=== PATIENT | male | born 1975 | race Asian ===

== ENCOUNTER 2016-12-01 21:06 | Emergency (ER) | payer OTHER ==
[~2016-12-01] VITALS: Ht 170.2 cm; Wt 70.4 kg
[2016-12-01 21:18] VITALS: Ht 170.2 cm; Wt 70.4 kg
[2016-12-01] MEDS ORDERED: ACETAMINOPHEN 500 MG TAB PO STA (21:37)
[2016-12-01] MEDS ORDERED: SODIUM CHLORIDE 0.9% 1000ML 2,000 ML IV STA (21:37)
[2016-12-01] MEDS ORDERED: SODIUM CHLORIDE 0.9% 1000ML 1,000 ML IV STA (21:37)
[2016-12-01] MEDS ORDERED: CEFTRIAXONE SOD INJ 2,000 MG in DEXTROSE 5% 50ML 50 ML IV STA (21:47)
[2016-12-01 21:51] VITALS: O2SAT 93
[2016-12-01] MEDS ORDERED: DEXAMETHASONE SOD INJ 10 MG/ML VIAL IV ONE (22:00)
[2016-12-01 22:05] LABS: MANUAL MICROSCOPIC REQUIRED? NO; REVIEW REQ? NO; URINE APPEARANCE CLEAR (CLEAR); URINE BILIRUBIN NEG (NEG); URINE COLOR YELLOW; URINE EPITHELIAL CELL AUTO 0-5 /lpf (0-5); URINE NITRITE NEG (NEG); URINE SPECIFIC GRAVITY 1.012 (1.000-1.030); UROBILINOGEN NEG (NEG); ZZUR CULT IF INDIC CLEAN CATCH NO
[2016-12-01 22:19] LABS: BASO % 0.2 %; BASO ABS # 0.02 K/uL (0-0.2); COMPLETE YES; EOS % 3.9 %; HEMATOCRIT 39.9 % (42-52); IG% 0.3 %; LYMPH % 13.2 %; LYMPH ABS # 1.53 K/uL (1.2-3.4); MEAN CELL VOLUME 85.4 fL (80-100); MEAN CORPUSCULAR HEMOGLOBIN 29.8 pg (25-34); MEAN CORPUSCULAR HGB CONC 34.8 g/dl (32-36); NEUT % 74.4 %; PLATELET COUNT 262 K/uL (130-400); RED BLOOD COUNT 4.67 M/uL (4.7-6.1)
[2016-12-01 22:29] LABS: INR 0.9 (0.9-1.1); PARTIAL THROMBOPLASTIN RATIO 1.1; PROTHROMBIN TIME (PATIENT) 10.1 SECONDS (9.0-12.0)
[2016-12-01 22:37] LABS: BUN/CREATININE RATIO 7.7 (10-20); CALCIUM 8.7 mg/dl (8.5-10.1); CREATININE 1.1 mg/dl (0.60-1.40); POTASSIUM 3.9 mmol/L (3.5-5.1)
[2016-12-01 22:40] LABS: ALB/GLOB RATIO 0.9 (0.9-2)
--- NOTE | 2016-12-01 22:42 | DIAGNOSTIC IMAGING REPORT ---
HEAD CT NONCONTRAST CT DOSE: 537.48 mGy.cm HISTORY: Fever. Mental status change. GALLEGOS/fever, return form africae TECHNIQUE: Multiaxial CT images of the head were performed without the use of intravenous contrast. Comparison: None. Findings: Moderate mucosal thickening of the ethmoid sinuses. Air-fluid level within the left maxillary sinus. Hypertrophic change of the nasal turbinates. Frontal sinuses are clear. The calvarium and skull base are intact. The ventricles and sulci are within normal limits. There is no mass, hematoma, midline shift, or acute infarct. Impression: 1. Negative unenhanced CT scan of the brain. 2. Sinusitis. Electronically signed by: Joey Salas M.D. 12/01/2016 10:41 PM Dictated Date/Time: 12/01/2016 10:40 PM
--- NOTE | 2016-12-01 23:01 | DIAGNOSTIC IMAGING REPORT ---
CHEST ONE VIEW PORTABLE CLINICAL HISTORY: Sepsis dyspnea COMPARISON STUDY: No previous studies for comparison. FINDINGS: Minimal left infrahilar infiltrate. Lungs otherwise are clear. Diaphragms smooth. IMPRESSION: Minimal left infrahilar infiltrate. Electronically signed by: Joey Salas M.D. 12/01/2016 11:00 PM Dictated Date/Time: 12/01/2016 11:00 PM
[2016-12-01 23:13] LABS: LYME DISEASE AB IGG NEG (NEG); LYME DISEASE AB IGM NEG (NEG)
[2016-12-01 23:20] VITALS: TEMP 37.7
[2016-12-01 23:39] LABS: CSF TOTAL PROTEIN 34.9 mg/dl (15.0-45.0)
[2016-12-01 23:41] LABS: CSF CHEMISTRY TUBE # 2
[2016-12-01 23:42] LABS: CSF APPEARANCE CLEAR; CSF COLOR COLORLESS; CSF XANTHOCHROMIC XANTHOCHROMIC
[2016-12-02 00:29] LABS: CSF APPEARANCE CLEAR; CSF COLOR COLORLESS; CSF XANTHOCHROMIC NO XANTHOCHROMIA
[2016-12-02] MEDS ORDERED: DOXY100C2 PO (00:42)
[2016-12-02] MEDS ORDERED: DOXYCYCLINE HYCLATE 100 MG CAP PO ONE (00:45)
[2016-12-02] MEDS ORDERED: IBUPROFEN 600 MG TAB PO STA (00:48)
--- NOTE | 2016-12-02 00:51 | EMERGENCY ROOM VISIT NOTE ---
History First contact with patient: 21:25 Chief Complaint: FEVER Stated Complaint: FEVER 103., ELEVATED RESTING HEART RATE 130 History of Present Illness The patient is a 41 year old male who presents to the Emergency Room with complaints of high fever, headache, neck discomfort and heart racing for the past day who just returned from [facility] 3 days ago. Patient did take his antimalarial medication. He is on mefloquine. She has taking it as prescribed. He states he has not missed a dose. Patient states he was there for 16 days. He did take a typhoid vaccine prior. No yellow fever vaccine. This was not recommended. Patient states the person next to him on the flight home was sick with fever and cough. She was in [place]. Patient denies chest pain, dyspnea, rashes, bleeding gums, abdominal pain, vomiting, diarrhea, sore throat, cough, vision problems, earache. He is tolerating by mouth fluids and food. He took Advil this morning but nothing since. He is unsure if any mosquitoes bit him. He's had tick bites in the past. He was there on holiday visiting family. No one else in the family is sick currently. Review of Systems See HPI for pertinent positives & negatives. A total of 10 systems reviewed and were otherwise negative. Past Medical/Surgical History None Social History Smoking Status: Never Smoker Smokeless Tobacco Use: No Drug Use: none Housing Status: lives with family Occupation Status: employed Current/Historical Medications Scheduled Doxycycline Hyclate (Vibramycin), 100 MG PO BID Mefloquine HCl (Mefloquine HCl), 250 MG PO TUESDAYS Allergies Coded Allergies: No Known Allergies (Unverified , 12/01/16) Physical Exam Vital Signs Date Time Temp Pulse Resp B/P (MAP) Pulse Ox O2 Delivery O2 Flow Rate FiO2 12/01/16 23:20 37.7 12/01/16 23:05 113 28 115/76 95 Room Air 12/01/16 21:59 108 12/01/16 21:51 93 Room Air 12/01/16 21:18 39.1 132 18 138/81 96 Room Air Physical Exam VITALS: Vitals are noted on the nurse's note and reviewed by myself. Vital signs febrile and tachycardic. GENERAL: Pleasant male mildly ill-appearing, well-developed well-nourished. SKIN: The skin was without rashes, erythema, edema, or bruising. There is no tenting of the skin. Capillary reflex less than 2 seconds. HEAD: Normocephalic atraumatic. EARS: External auditory canals clear, tympanic membranes pearly bragg without erythema or effusion bilaterally. EYES: Pupils equal round and reactive to light and accommodation. Conjunctivae without injection, sclerae without icterus. Extraocular movements intact. NOSE: Patent, turbinates without inflammation or discharge. No sinus tenderness. MOUTH: Mucous membranes mildly dry. Pharynx without erythema or exudate. Uvula midline. Airway patent. Tongue does not deviate. NECK: Supple with neck pain with chin to chest. No lymphadenopathy. No thyromegaly. Cervical spine is nontender. No JVD. HEART: Tachycardic Regular rate and rhythm without murmurs gallops or rubs. LUNGS: Clear to auscultation bilaterally without wheezes, rales or rhonchi. No dullness to percussion. No retractions or accessory muscle use. ABDOMEN: Positive bowel sounds x 4. Normal tympanic percussion. Soft, nontender, without masses or organomegaly. Saleem sign negative. No guarding or rebound tenderness. No CVA tenderness MUSCULOSKELETAL: No muscle atrophy, erythema, or edema noted. NEURO: Patient was alert and oriented to person place and time. Normal sensation to light and sharp touch. No focal neurological deficits. Medical Decision & Procedures Laboratory Results 12/01/16 21:56 Red Blood Count 4.67, Mean Corpuscular Volume 85.4, Mean Corpuscular Hemoglobin 29.8, Mean Corpuscular Hemoglobin Concent 34.8, Mean Platelet Volume 9.0, Neutrophils (%) (Auto) 74.4, Lymphocytes (%) (Auto) 13.2, Monocytes (%) (Auto) 8.0, Eosinophils (%) (Auto) 3.9, Basophils (%) (Auto) 0.2, Neutrophils # (Auto) 8.64, Lymphocytes # (Auto) 1.53, Monocytes # (Auto) 0.93, Eosinophils # (Auto) 0.45, Basophils # (Auto) 0.02 12/01/16 21:56 Test 12/01/16 21:50 12/01/16 21:56 12/01/16 22:11 12/01/16 23:05 Urine Color YELLOW Urine Appearance CLEAR (CLEAR) Urine pH 7.0 (4.5-7.5) Urine Specific [place] 1.012 (1.000-1.030) Urine Protein NEG (NEG) Urine Glucose (UA) NEG (NEG) Urine Ketones NEG (NEG) Urine Occult Blood NEG (NEG) Urine Nitrite NEG (NEG) Urine Bilirubin NEG (NEG) Urine Urobilinogen NEG (NEG) Urine Leukocyte Esterase NEG (NEG) Urine WBC (Auto) 1-5 /hpf (0-5) Urine RBC (Auto) 0-4 /hpf (0-4) Urine Hyaline Casts (Auto) 0 /lpf (0-5) Urine Epithelial Cells (Auto) 0-5 /lpf (0-5) Urine Bacteria (Auto) NEG (NEG) White Blood Count 11.60 K/uL (4.8-10.8) Red Blood Count 4.67 M/uL (4.7-6.1) Hemoglobin 13.9 g/dL (14.0-18.0) Hematocrit 39.9 % (42-52) Mean Corpuscular Volume 85.4 fL (80-100) Mean Corpuscular Hemoglobin 29.8 pg (25-34) Mean Corpuscular Hemoglobin Concent 34.8 g/dl (32-36) Platelet Count 262 K/uL (130-400) Mean Platelet Volume 9.0 fL (7.4-10.4) Neutrophils (%) (Auto) 74.4 % Lymphocytes (%) (Auto) 13.2 % Monocytes (%) (Auto) 8.0 % Eosinophils (%) (Auto) 3.9 % Basophils (%) (Auto) 0.2 % Neutrophils # (Auto) 8.64 K/uL (1.4-6.5) Lymphocytes # (Auto) 1.53 K/uL (1.2-3.4) Monocytes # (Auto) 0.93 K/uL (0.11-0.59) Eosinophils # (Auto) 0.45 K/uL (0-0.5) Basophils # (Auto) 0.02 K/uL (0-0.2) RDW Standard Deviation 38.8 fL (36.4-46.3) RDW Coefficient of Variation 12.5 % (11.5-14.5) Immature Granulocyte % (Auto) 0.3 % Immature Granulocyte # (Auto) 0.03 K/uL (0.00-0.02) Prothrombin Time 10.1 SECONDS (9.0-12.0) Prothromb Time International Ratio 0.9 (0.9-1.1) Activated Partial Thromboplast Time 27.7 SECONDS (21.0-31.0) Partial Thromboplastin Ratio 1.1 Anion Gap 7.0 mmol/L (3-11) Est Creatinine Clear Calc Drug Dose 84.3 ml/min Estimated GFR () 97.5 Estimated GFR (Non- 84.1 BUN/Creatinine Ratio 7.7 (10-20) Calcium Level 8.7 mg/dl (8.5-10.1) Total Bilirubin 0.9 mg/dl (0.2-1) Aspartate Amino Transf (AST/SGOT) 16 U/L (15-37) Alanine Aminotransferase (ALT/SGPT) 26 U/L (12-78) Alkaline Phosphatase 70 U/L (45-117) Total Protein 7.6 gm/dl (6.4-8.2) Albumin 3.7 gm/dl (3.4-5.0) Globulin 3.9 gm/dl (2.5-4.0) Albumin/Globulin Ratio 0.9 (0.9-2) Lyme Disease IgG Antibody NEG (NEG) Lyme Disease IgM Antibody NEG (NEG) Bedside Lactic Acid Venous 0.99 mmol/L (0.90-1.70) CSF Color COLORLESS CSF Appearance CLEAR CSF WBC 1 /uL (0-5) CSF RBC 58 /uL (0) CSF Xanthrochromic NO XANTHOCHROMIA CSF Cell Count Tube # 1 CSF Chemistry Tube # 2 CSF Glucose 70 mg/dl (40-70) CSF Total Protein 34.9 mg/dl (15.0-45.0) Medications Administered Medications (Trade) Dose Ordered Sig/Devon Route Start Time Stop Time Status Last Admin Dose Admin Sodium Chloride 2,000 ml @ 999 mls/hr Q2H1M STAT IV 12/01/16 21:37 12/01/16 23:37 DC 12/01/16 21:37 999 MLS/HR Sodium Chloride 1,000 ml @ 125 mls/hr Q8H STAT IV 12/01/16 21:37 12/02/16 05:36 12/01/16 22:20 125 MLS/HR Acetaminophen (Tylenol Tab) 1,000 mg NOW STAT PO 12/01/16 21:37 12/01/16 21:39 DC 12/01/16 22:20 1,000 MG Ceftriaxone Sodium 2000 mg/ Dextrose 70 ml @ 100 mls/hr ONE STAT IV 12/01/16 21:47 12/01/16 22:28 DC 12/01/16 22:32 100 MLS/HR Dexamethasone Sodium Phosphate (Decadron Inj) 10 mg NOW ONCE IV 12/01/16 22:00 12/01/16 22:02 DC 12/01/16 22:20 10 MG Procedure Lumbar Puncture Indication: Rule out meningitis. Verbal consent was obtained after the risks and benefits were explained, including but not limited to headache, bleeding/clotting, scarring, infection, pain, and bone/joint/nerve damage. At this time, the risks of the procedure are less than the risks of NOT performing the procedure. A time out was taken and the correct patient and site identified. The patient was placed in the sitting position and the back was prepped with betadine and draped in the standard fashion. The L3 intervertebral space was identified, anesthetized locally with 1 % lidocaine without epinephrine, and the spinal needle was inserted through the skin with the bevel parallel to the dural fibers. The needle was carefully advanced into the lumbar cistern and 4 tubes of clear CSF was obtained. The stylet was replaced and the needle was removed. A bandaid was placed and the patient was placed in the supine position. The patient tolerated the procedure well and there were no complications. ED Course Prior records/ancillary studies reviewed. Triage Nursing notes reviewed. The patient's history was concerning for fever. Differential diagnosis: Etiologies such as malaria, yellow fever, typhoid, hepatitis, viral syndrome, otitis, pharyngitis, pneumonia, influenza, meningitis, urinary tract infection, sepsis, bacteremia, as well as others were entertained. Physical examination: Patient is alert and mildly ill-appearing ER treatment provided: IV fluids, Tylenol, Decadron, Rocephin On reassessment the patient felt better. Diagnostics interpreted by me: ECG: Normal sinus, normal intervals, normal axis, no acute ST-T wave changes, with a rate of 113. Impression sinus tachycardia interpreted by myself The labs revealed leukocytosis, mild anemia, negative CSF Imaging studies: CT DOSE: 537.48 mGy.cm HISTORY: Fever. Mental status change. GALLEGOS/fever, return form africae TECHNIQUE: Multiaxial CT images of the head were performed without the use of intravenous contrast. Comparison: None. Findings: Moderate mucosal thickening of the ethmoid sinuses. Air-fluid level within the left maxillary sinus. Hypertrophic change of the nasal turbinates. Frontal sinuses are clear. The calvarium and skull base are intact. The ventricles and sulci are within normal limits. There is no mass, hematoma, midline shift, or acute infarct. Impression: 1. Negative unenhanced CT scan of the brain. 2. Sinusitis. Electronically signed by: Joey Salas M.D. CHEST ONE VIEW PORTABLE CLINICAL HISTORY: Sepsis dyspnea COMPARISON STUDY: No previous studies for comparison. FINDINGS: Minimal left infrahilar infiltrate. Lungs otherwise are clear. Diaphragms smooth. IMPRESSION: Minimal left infrahilar infiltrate. Electronically signed by: Joey Salas M.D. 12/01/2016 11:00 PM I did review the CDC website and patient is at risk for malaria, yellow fever, meningitis and typhoid. The lady that he was sitting next to him on the Pl[place] from [facility] is also a risk for the same things but also hepatitis. Blood cultures were drawn and septic workup was initiated. Isolation precautions were placed. This appears to be consistent with pneumonia. Patient had no sinus tenderness on exam. He is well-appearing. CSF was negative for bacterial meningitis. Negative malaria screen. Negative lactic acid. Blood cultures are pending. He was counseled on diagnosis and all questions are answered. He was advised to repeat malaria testing if he still symptomatic with his family care doctor. He was advised take medications as directed, rest, stay well-hydrated and follow -up family care in a few days or here in the ER sooner for high fevers, lethargy , neck stiffness, spinal headache, worsening signs or symptoms or as needed. By the evaluation outlined above emergent etiologies such as otitis, pharyngitis, meningitis, urinary tract infection, sepsis, bacteremia, as well as others were deemed relatively unlikely. The pt informed about the findings as listed above. All questions were answered and pleased with the treatment. Return instructions were outlined and the patient was discharged in stable condition. Outpatient prescription management: Doxycycline Referral: The patient was referred back to their primary care physician for follow-up in 2 to 3 days for a recheck of the current condition. Case reviewed with my attending Medical Decision As above Impression Primary Impression: Pneumonia Additional Impression: Fever Departure Information Prescriptions Doxycycline Hyclate (VIBRAMYCIN) 100 Mg Cap 100 MG PO BID for 7 Days, #14 CAP Prov: Mansi Madrid PA-C 12/02/16 Referrals Brionna Baez M.D. (PCP) Patient Instructions [facility] Problem Qualifiers Primary Impression: Pneumonia Pneumonia type: due to unspecified organism Laterality: left Lung location : unspecified part of lung Qualified Codes: J18.9 - Pneumonia, unspecified organism Additional Impression: Fever Fever type: unspecified Qualified Codes: R50.9 - Fever, unspecified
[2016-12-02 01:02] VITALS: BP 132/77; PULSE 81; O2SAT 97
[2016-12-05] MEDS ORDERED: [UNRECOGNIZED DRUG - CODE] PO (22:11)
== END 2016-12-02 01:05 | disposition home or self-care (01) ==
LOC: C.EDB 21:07 → C.EDC 12-02 01:05
DX: J18.9 Pneumonia, unspecified organism (principal); R50.9 Fever, unspecified

== ENCOUNTER 2016-12-05 15:58 | Emergency (ER) | payer OTHER ==
[~2016-12-05] VITALS: Ht 170.2 cm; Wt 69.5 kg
[~2016-12-05 15:58] MED LIST: DOXY100C2 PO
[2016-12-05 16:00] VITALS: TEMP 36.7; Ht 170.2 cm; Wt 69.5 kg
[2016-12-05 16:35] LABS: BASO % 0.4 %; BASO ABS # 0.04 K/uL (0-0.2); COMPLETE YES; HEMATOCRIT 45.6 % (42-52); IG% 0.2 %; LYMPH % 41.2 %; LYMPH ABS # 3.76 K/uL (1.2-3.4); MEAN CELL VOLUME 84.4 fL (80-100); MEAN CORPUSCULAR HEMOGLOBIN 28.9 pg (25-34); MEAN CORPUSCULAR HGB CONC 34.2 g/dl (32-36); MEAN PLATELET VOLUME 8.7 fL (7.4-10.4); MONO % 11.1 %; NEUT % 36.1 %; PLATELET COUNT 345 K/uL (130-400); WHITE BLOOD COUNT 9.12 K/uL (4.8-10.8)
[2016-12-05 16:44] LABS: PROTHROMBIN TIME (PATIENT) 10.2 SECONDS (9.0-12.0)
[2016-12-05 16:52] LABS: BUN/CREATININE RATIO 8.7 (10-20); CALCIUM 9.8 mg/dl (8.5-10.1); POTASSIUM 3.9 mmol/L (3.5-5.1)
--- NOTE | 2016-12-05 19:32 | Progress Note ---
Progress Note Date of Service Dec 05, 2016. Progress Note The patient is a 41 year old who had an LP in the ED four days ago. The next day he developed a severe headache from the back of the neck radiating upward across the top of the head. It resolves when he lies flat and is worse when he stands. He was given informed consent and placed in the sitting position. The L3 -4 interspace was infiltrated subcu with 1% lidocaine and a 17 gauge tuohy was used to access the epidural space. Under sterile conditions Dr Cortés juan 20 cc of autologous blood and it was injected into the epidural space. The patient was laid supine for 30 minutes and discharged with instructions to follow up with his private MD if he has any more problems.
--- NOTE | 2016-12-05 20:01 | Anesthesiology Progress Note ---
Anesthesia Progress Note Date of Service Dec 05, 2016. Progress Notes Pt has been supine x > 30 mins. post epidural blood patch.Pt was place in the upright position x 1o minutes. Pt states the PDPH has abated. Pt to be discharged by ER attending physician.
[2016-12-05 20:19] VITALS: BP 98/70; PULSE 62; O2SAT 98
--- NOTE | 2016-12-05 20:46 | EMERGENCY ROOM VISIT NOTE ---
History Report prepared by Juan Cibluis: Rico Javier Under the Supervision of: Dr. Brent Baird D.O. First contact with patient: 16:05 Chief Complaint: HEADACHE Stated Complaint: HEADACHE AFTER LUMBAR PUNCTURE History of Present Illness The patient is a 41 year old male who presents to the Emergency Room with complaints of a persistent posterior headache beginning four days ago. He was seen in the ED four days ago for a headache and had a lumbar puncture to rule out meningitis. His meningitis testing was negative, but he was found to have pneumonia. The patient states "my head just feels stiff" and describes his pain as a "throbbing". His pain is worse while standing. He states that his pain is nearly gone while he is laying down. The patient states that he has had no fevers since his previous visit to the ED. He states that his current headache feels completely different than it did prior to the lumbar puncture. The headache that he had when he came in several days ago and is completely resolved. He is not on any blood thinners. Pt denies change in vision, cough, sore throat, chest pain, shortness of breath, nausea, vomiting, diarrhea, pain with urination, rash, and melena. He notes that he often gets a rash on his lip when he gets sick which became present a few days ago. Source of History: patient Onset: Four days ago Position: head (posterior) Quality: other ("throbbing") Timing: other (persistent) Modifying Factors (Worsening): other (standing) Modifying Factors (Relieving): other (laying down) Associated Symptoms: No fevers, No sorethroat, No cough, No chest pain, No SOB, No nausea, No vomiting, No melena, No diarrhea, No urinary symptoms Review of Systems See HPI for pertinent positives & negatives. A total of 10 systems reviewed and were otherwise negative. Past Medical & Surgical Medical Problems: (1) No Known Active Medical Problems Family History No pertinent family history stated. Social History Smoking Status: Never Smoker Drug Use: none Housing Status: lives with family Occupation Status: employed Current/Historical Medications Scheduled Doxycycline Hyclate (Vibramycin), 100 MG PO BID Mefloquine HCl (Mefloquine HCl), 250 MG PO WK Allergies Coded Allergies: No Known Allergies (Unverified , 12/01/16) Physical Exam Vital Signs Date Time Temp Pulse Resp B/P (MAP) Pulse Ox O2 Delivery O2 Flow Rate FiO2 12/05/16 20:19 62 16 98/70 98 12/05/16 19:46 62 20 118/76 97 Room Air 12/05/16 19:34 65 18 99/61 95 Room Air 12/05/16 19:25 59 12/05/16 17:29 78 16 112/71 97 Room Air 12/05/16 16:00 36.7 89 17 129/88 97 Room Air Physical Exam GENERAL: sitting up in bed, disheveled, no acute distress EYE EXAM: normal conjunctiva OROPHARYNX: no exudate, no erythema, lips, buccal mucosa, and tongue normal and mucous membranes are moist NECK: supple, no nuchal rigidity, no adenopathy, non-tender. Negative Brudzinski. LUNGS: Clear to auscultation. Normal chest wall mechanics HEART: no murmurs, S1 normal and S2 normal ABDOMEN: abdomen soft, non-tender, normo-active bowel sounds, no masses, no rebound or guarding. BACK: no CVA tenderness. SKIN: no rashes and no bruising UPPER EXTREMITIES: upper extremities are grossly normal. LOWER EXTREMITIES: No pitting edema. NEURO EXAM: Normal sensorium, cranial nerves II-XII intact, normal speech, no weakness of arms, no weakness of legs. No drift. Finger to nose intact. Gross sensation intact. Medical Decision & Procedures Laboratory Results 12/05/16 16:26 Red Blood Count 5.40, Mean Corpuscular Volume 84.4, Mean Corpuscular Hemoglobin 28.9, Mean Corpuscular Hemoglobin Concent 34.2, Mean Platelet Volume 8.7, Neutrophils (%) (Auto) 36.1, Lymphocytes (%) (Auto) 41.2, Monocytes (%) (Auto) 11.1, Eosinophils (%) (Auto) 11.0, Basophils (%) (Auto) 0.4, Neutrophils # (Auto ) 3.29, Lymphocytes # (Auto) 3.76, Monocytes # (Auto) 1.01, Eosinophils # (Auto ) 1.00, Basophils # (Auto) 0.04 12/05/16 16:26 Test 12/05/16 16:26 White Blood Count 9.12 K/uL (4.8-10.8) Red Blood Count 5.40 M/uL (4.7-6.1) Hemoglobin 15.6 g/dL (14.0-18.0) Hematocrit 45.6 % (42-52) Mean Corpuscular Volume 84.4 fL (80-100) Mean Corpuscular Hemoglobin 28.9 pg (25-34) Mean Corpuscular Hemoglobin Concent 34.2 g/dl (32-36) Platelet Count 345 K/uL (130-400) Mean Platelet Volume 8.7 fL (7.4-10.4) Neutrophils (%) (Auto) 36.1 % Lymphocytes (%) (Auto) 41.2 % Monocytes (%) (Auto) 11.1 % Eosinophils (%) (Auto) 11.0 % Basophils (%) (Auto) 0.4 % Neutrophils # (Auto) 3.29 K/uL (1.4-6.5) Lymphocytes # (Auto) 3.76 K/uL (1.2-3.4) Monocytes # (Auto) 1.01 K/uL (0.11-0.59) Eosinophils # (Auto) 1.00 K/uL (0-0.5) Basophils # (Auto) 0.04 K/uL (0-0.2) RDW Standard Deviation 37.7 fL (36.4-46.3) RDW Coefficient of Variation 12.3 % (11.5-14.5) Immature Granulocyte % (Auto) 0.2 % Immature Granulocyte # (Auto) 0.02 K/uL (0.00-0.02) Prothrombin Time 10.2 SECONDS (9.0-12.0) Prothromb Time International Ratio 1.0 (0.9-1.1) Anion Gap 8.0 mmol/L (3-11) Est Creatinine Clear Calc Drug Dose 92.7 ml/min Estimated GFR () 109.4 Estimated GFR (Non- 94.4 BUN/Creatinine Ratio 8.7 (10-20) Calcium Level 9.8 mg/dl (8.5-10.1) Total Bilirubin 0.6 mg/dl (0.2-1) Direct Bilirubin 0.1 mg/dl (0-0.2) Aspartate Amino Transf (AST/SGOT) 11 U/L (15-37) Alanine Aminotransferase (ALT/SGPT) 28 U/L (12-78) Alkaline Phosphatase 69 U/L (45-117) Total Protein 7.6 gm/dl (6.4-8.2) Albumin 3.5 gm/dl (3.4-5.0) Laboratory results per my review. ED Course ED COURSE: Vital signs were reviewed and showed hypertension The patients medical record was reviewed The above diagnostic studies were performed and reviewed. ED treatments and interventions as stated above. 1607: The patient was evaluated in room C4. A complete history and physical examination was performed. 1728: I reassessed the patient. He feels completely normal with laying flat. 2010: Upon reevaluation, the patient is resting comfortably. I discussed my findings with the patient and he understands and agrees with the treatment plan. Based on the patients age, coexisting illnesses, exam and lab findings the decision to treat as an outpatient was made. The patient remained stable while under my care. The patient appeared well at the time of discharge. Medical Decision Differential Diagnosis includes but is not limited to headache, tension headache , cluster headache, migraine, subarachnoid hemorrhage, meningitis, mass, central venous thrombus, concussion, trauma and epidural/subdural hemorrhage. Patient is a 41-year-old male who was seen here several days ago for fever and headache. He was diagnosed with pneumonia. LP was performed at that time and was negative. His headache from that visit has completely resolved. He now only has a headache when he is sitting up and it almost completely resolves when he lies flat. Patient is completely neurologically intact. Examination and HPI is consistent with a post-LP headache. Patient was given fluids and evaluated by anesthesia. Blood patch was performed. Patient following this was able to sit up and stand without pain. He was discharged to follow-up with his PCP. Discussed with Pt concerning signs and symptoms to watch out for. Pt was instructed to follow up with their PCP and discussed with the patient their option to return to the ED at anytime for persistent or worsening symptoms. The appropriate anticipatory guidance and out-patient management, including indications for return to the emergency department, were explained at length to the patient and understood. Consults Time Called: [id number] Consulting Physician: Dr. Josue -Anesthesiology Returned Call: 1915 Discussed the patient's case with Dr. Josue. The patient will be evaluated for possible blood patch. Impression Primary Impression: Post lumbar puncture headache Scribe Attestation The scribe's documentation has been prepared under my direction and personally reviewed by me in its entirety. I confirm that the note above accurately reflects all work, treatment, procedures, and medical decision making performed by me. Departure Information Dispostion Home / Self-Care Referrals Brionna Baez M.D. (PCP) Forms HOME CARE DOCUMENTATION FORM, IMPORTANT VISIT INFORMATION Patient Instructions ED Headache Post Spinal Tap W Patch, My [facility] Additional Instructions Please follow up with your primary care doctor with in the next 24 hours. Any worsening of your symptoms, please return to the ED immediately. This includes fevers greater than 100.4, recurrence of her headache, weakness or numbness in arms or legs, or any other concerning signs or symptoms from your standpoint.
[2016-12-05] MEDS ORDERED: MEFL250T2 PO (22:11)
== END 2016-12-05 20:20 | disposition home or self-care (01) ==
LOC: C.EDB 15:59 → C.EDC 20:20
DX: G97.1 Other reaction to spinal and lumbar puncture (principal); Z79.899 Other long term (current) drug therapy